=== PATIENT | male | born 1965 | race Caucasian/White ===

== ENCOUNTER 2024-05-19 06:12 | Day surgery (SDC) | payer OTHER, SELFPAY ==
[2024-04-29 12:52] VITALS: BMI 27.9
[2024-05-19] VITALS (9 sets, daily range): BP systolic 125–156; BP diastolic 70–142; BMI 27.9
[2024-05-19] MEDS: TYLENOL 1000 MG PO (06:38)
[2024-05-19] MEDS: NORMOSOL-R/PLASMALYTE-A 1000 IV (06:38)
--- NOTE | 2024-05-19 09:37 | OR.RPT ---
Operative Report
Operative Report
Primary Surgeon: Gisel
Assisting: Johan KHANNA
Pre-op Diagnosis: Bilateral inguinal hernia
Post-op Diagnosis: Same
Procedure Performed: Robot assisted laparoscopic repair of bilateral inguinal hernias
Anesthesia Type: GETA
Specimen / Cultures: None
Estimated Blood Loss: 10cc
Complications: None immediate
Operative Findings: Byrnes placed prior to starting, scarring as expected around bladder and major vessels; right indirect defect with large cord lipoma, left femoral hernia with fatty contents; B/L XL MID 3D Max
Date of surgery: 05/19/24
Indications:� This 58M developed symptomatic left inguinal hernia. Examination revealed a contralateral hernia as well. He asked that we repair both sides today. Robot assisted laparoscopic repair was planned.
Description of procedure:� The patient was taken to the operating room and positioned into supine position. Byrnes placed. The patient�s abdomen was prepped and draped in standard sterile fashion. A time-out was completed verifying correct patient,
procedure, site, positioning, and implants and special equipment prior to beginning this procedure.� The hernia was manually reduced after induction. A stab incision was made in the left upper quadrant, a Veress needle was inserted and proper
position was confirmed by aspiration and saline drop test. Following this, pneumoperitoneum was created with insufflation of carbon dioxide to 12 mmHg. Then a 8mm robotic trocar was inserted above and to the left of the umbilicus. A laparoscope was
inserted and the area of initial trocar entry and Veress needle placement were both inspected and no injuries were found. Two 8mm trocars were then placed lateral to the rectus sheath under direct visualization.
Both inguinal regions were inspected and the median umbilical ligament, medial umbilical ligament, and lateral umbilical fold were identified. Attention was turned to the right groin where a defect was identified. The peritoneum was incised
transversely above the defect and a flap was developed in the caudad direction. Werner�s ligament was identified ultimately dissected to its junction with the iliac vein and the space of Retzius was developed bluntly.�There was some expected
fibrotic scaring in this space. The bladder was bluntly swept down and protected. The dissection was continued inferiorly to the iliopubic tract, with care taken to avoid injury to the femoral branch of the genitofemoral nerve and the lateral
femoral cutaneous nerve. The cord structures were parietalized.
The direct space was inspected and no hernia was identified. The femoral space was inspected no defect was identified.� The indirect space was inspected and a hernia was identified and reduced by gentle traction. The canal was inspected and a large
cord lipoma was identified and reduced by gentle traction.
Attention was turned to the left groin and the above process was repeated. A femoral defect was identified and reduced by gentle traction. The canal was inspected and no cord lipoma was identified.
Extra large right and left MID 3D max mesh was passed through a trocar. The mesh was placed into the preperitoneal space and moved into position to lay flat and completely cover the direct, indirect, and femoral spaces with overlap at the midline.
The mesh was secured into place using 2-0 vicryl suture to Werner�s ligament medially and laterally. Care was taken to avoid the inferolateral triangles containing the iliac vessels and genital nerves. The peritoneal flap was closed over the mesh
and secured with 2-0 monocryl stratafix suture in similar positions of safety. Inferior flap rents, small, were identified at the right inferior flap and left medial inferior flap, these were closed with monocryl 2-0 stratafix suture. A 14g
angiocath was used to decompress the preperitoneal space revealing good seal and all mesh in good position without folding or curling.
After ensuring adequate hemostasis, the trocars were removed and the pneumoperitoneum allowed to escape. The trocar incisions were closed at the skin level using 4-0 monocryl and topical skin adhesive. Byrnes removed. All counts were correct and the
patient tolerated the procedure well and was taken to the postanesthesia care unit in stable condition.
[2024-05-19] MEDS: DILAUDID 0.25 MG IV (10:13)
[2024-05-19] MEDS: ROXICODONE 5 MG PO (11:26)
[2024-05-19] MEDS: ZOFRAN 4 MG IV (12:18)
[2024-05-19] MEDS: TYLENOL 650 MG PO (12:23)
== END 2024-05-19 13:00 | disposition home or self-care (01) ==
LOC: SDS 06:12
PROVIDERS: ATTENDING PHYSICIAN Surgery; FAMILY PHYSICIAN Family Medicine
DX: K40.20 Bilateral inguinal hernia, without obstruction or gangrene, not specified as recurrent (principal)
CPT/HCPCS: 49650; 36415; 93005; C1781